=== PATIENT | male | born 1970 | race Two or more races ===

== ENCOUNTER 2020-05-26 09:07 | Emergency (ER) | payer MEDICAID ==
[~2020-05-26] VITALS: Ht 170.2 cm; Wt 90.7 kg
--- NOTE | 2020-05-26 09:15 | NUR ---
, from [facility]. Patient awake, alert and oriented. No distress noted. Needs attended. Kept comfortable.
[2020-05-26 10:00] LABS: BASOPHILS # (AUTO) 0.1 /CMM (0.0-0.2); BASOPHILS % (AUTO) 0.9 % (0.0-2.0); EOSINOPHILS % (AUTO) 0.2 % (0.0-6.0); HEMATOCRIT 43 % (39-51); HEMOGLOBIN 14.5 g/dL (13.5-17.5); LYMPHOCYTES # (AUTO) 1.1 /CMM (0.8-4.8); LYMPHOCYTES % (AUTO) 15.3 % (20.0-44.0); MEAN CORPUSCULAR HGB CONC 34 g/dl (31.0-36.0); MEAN CORPUSCULAR VOLUME 94 fL (80-96); MONOCYTES # (AUTO) 0.5 /CMM (0.1-1.30); MONOCYTES % (AUTO) 7.3 % (2.0-12.0); NEUTROPHILS # (AUTO) 5.3 /CMM (1.8-8.9); NEUTROPHILS % (AUTO) 76.3 % (43.0-81.0); PLATELET COUNT (AUTO) 233 /CMM (150-450); RED BLOOD CELL COUNT(AUTO) 4.51 MIL/uL (4.5-6.0); WHITE BLOOD COUNT (AUTO) 6.9 K/uL (4.3-11.0)
[2020-05-26 10:18] LABS: ALBUMIN 3.4 g/dL (3.4-5.0); BILIRUBIN,DIRECT 0.2 mg/dL (0.0-0.2); BILIRUBIN,TOTAL 0.6 mg/dL (0.2-1.0); CALCIUM, SERUM 7.7 mg/dL (8.5-10.1); CREATININE 0.7 mg/dL (0.6-1.3); POTASSIUM 3.4 mmol/L (3.5-5.1); TOTAL PROTEIN, SERUM 7.6 g/dL (6.4-8.2)
--- NOTE | 2020-05-26 14:38 | NUR ---
AMBULATORY WITH STEADY GAIT. AAOX4, VERBALLY RESPONSIVE. PROVIDED W/ FRESH CLOTHING. DISCHARGE HOME IN STABLE CONDITION.
[2020-05-26 15:57] VITALS: BP 122/84
== END 2020-05-26 14:38 | disposition home or self-care (01) ==
LOC: ER 09:07
DX: F10.129 Alcohol abuse with intoxication, unspecified (principal); Y90.8 Blood alcohol level of 240 mg/100 ml or more
CPT/HCPCS: 36415; 80048-TC; 80076-TC; 85025-TC; G0480

== ENCOUNTER 2020-05-28 13:47 | Emergency (ER) | payer MEDICAID ==
--- NOTE | 2020-05-28 14:05 | NUR ---
PT REFUSED TO BE SEEN. ELOPED PRIOR TO TRIAGE UINDER THE CARE OF MEDICAL ENGINEER.
[2020-05-29] MEDS ORDERED: OLAN5TAB3 PO (08:33)
[2020-05-29] MEDS ORDERED: LEVE500T9 PO (08:33)
[2020-05-29] MEDS ORDERED: FLUO40CA8 PO (08:33)
[2020-05-29] MEDS ORDERED: DOLU25TA PO (08:33)
[2020-05-29] MEDS ORDERED: DARU1TAB3 PO (09:12)
== END 2020-05-28 14:05 | disposition left against medical advice (07) ==
LOC: ER 13:49
DX: Z53.21 Procedure and treatment not carried out due to patient leaving prior to being seen by health care provider (principal); F20.9 Schizophrenia, unspecified; F32.9 Major depressive disorder, single episode, unspecified

== ENCOUNTER 2020-05-28 17:59 | Inpatient (IN) | payer MEDICAID, OTHER ==
[~2020-05-28] VITALS: Ht 170.2 cm; Wt 83.5 kg
[2020-05-28] MEDS ORDERED: LEVETIRACETAM (500MG) 1,000 MG in IV NS 0.9% 100 ML IV SCH (19:30)
--- NOTE | 2020-05-28 19:36 | NUR ---
BLOOD DRAWN BY MEAT HANGER, COVID SWAB DONE AND PT IS ON HIS WAY TO CT ON A RNEY
--- NOTE | 2020-05-28 19:37 | NUR ---
bg from a sober living to er bed 7. aaox4. not in resp distress, breathing even and unlabored. brought in for unwitnessed seizure. pt was already here earlier but left. 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 he report taking kepra but have taken any for a week. pt is noted with facial abrasion and scabs, according to pt he fell yesterday because of the seizure. calista was at th bedside for eval.
[2020-05-28 19:39] LABS: BASOPHILS % (AUTO) 0.5 % (0.0-2.0); HEMATOCRIT 43 % (39-51); HEMOGLOBIN 14.7 g/dL (13.5-17.5); LYMPHOCYTES # (AUTO) 1.1 /CMM (0.8-4.8); LYMPHOCYTES % (AUTO) 15.4 % (20.0-44.0); MEAN CORPUSCULAR HGB CONC 34 g/dl (31.0-36.0); MEAN CORPUSCULAR VOLUME 95 fL (80-96); MONOCYTES # (AUTO) 0.6 /CMM (0.1-1.30); NEUTROPHILS # (AUTO) 5.6 /CMM (1.8-8.9); NEUTROPHILS % (AUTO) 76.1 % (43.0-81.0); PLATELET COUNT (AUTO) 194 /CMM (150-450); RED BLOOD CELL COUNT(AUTO) 4.55 MIL/uL (4.5-6.0); WHITE BLOOD COUNT (AUTO) 7.4 K/uL (4.3-11.0)
[2020-05-28 19:48] LABS: CALCIUM, SERUM 8.2 mg/dL (8.5-10.1); CARBON DIOXIDE 22 mmol/L (21-32); CHLORIDE 102 mmol/L (98-107); GLUCOSE 96 mg/dL (74-106); POTASSIUM 3.5 mmol/L (3.5-5.1); SODIUM SERUM 140 mmol/L (136-145); UREA NITROGEN, BLOOD 8 mg/dL (7-18)
[2020-05-28 19:54] LABS: ALANINE AMINOTRANSFERASE 65 U/L (12-78); ALBUMIN 3.6 g/dL (3.4-5.0); ALKALINE PHOSPHATASE 117 U/L (46-116); ASPARTATE AMINOTRANSFERASE 163 U/L (15-37); BILIRUBIN,DIRECT 0.2 mg/dL (0.0-0.2); BILIRUBIN,TOTAL 0.6 mg/dL (0.2-1.0)
--- NOTE | 2020-05-28 20:00 | NUR ---
LACTIC 2.6, AWARE
[2020-05-28 20:01] LABS: MAGNESIUM 2.1 mg/dL (1.8-2.4)
[2020-05-28] MEDS ORDERED: VANCOMYCIN 1 GM in IV D5W 250 ML IV ONE ×2 (20:30→21:00)
[2020-05-28] MEDS ORDERED: CEFEPIME 1 GM in IV D5W 50 ML IV ONE ×2 (20:30→21:00)
--- NOTE | 2020-05-28 20:44 | NUR ---
pt unable to provide urine despite asking several times. made aware. ok to get urine once pt have the urge
[2020-05-28] MEDS ORDERED: IV NS 0.9% 1,000 ML BAG IV ONE (21:00)
--- NOTE | 2020-05-28 21:06 | NUR ---
report given to ed zelaya for mireille
--- NOTE | 2020-05-28 21:10 | NUR ---
UNABLE TO EDMUND VANCOMYCIN 1GM VIA IV ON [employer]. VANCOMYCIN GIVEN 2109 ON LFA 18G, ENDTIME 2209
--- NOTE | 2020-05-28 21:16 | NUR ---
MD MADE AWARE THAT HE PLACED ANOTHER ORDER FOR MAXIPINE AND VANCOMYCIN. ORRIGINAL ORDER WAS CANCELLED AND REPLACED WITH THE SAME ORDER. WHEN MD MADE AWARE, ORDERS GOT CANCELLED AGAIN. MAXIPINE WAS GIVEN ORIGINNALY ORDERED WELL THE VANCOMYCIN.
[2020-05-28 21:30] VITALS: BP 116/73
--- NOTE | 2020-05-28 21:34 | NUR ---
PT TRANSPORTED TO UNIT ON GURNEY WITH EMT AND RN AT BEDSIDE W/ ACLS PROTOCOL. NAD NOTED DURIN TRANSPORT.
--- NOTE | 2020-05-28 21:35 | NUR ---
tele admission note Admitted a 49 yr old male with admitting dx of seizures. Pt DNR/DNI with nkda. Dr. Jama aware. waiting to sign advanced directives. Patient alert oriented x4. Breathing even and unlabored with no sob or acute distress noted. Denies any pain or discomfort. Body assessment completed and belongings inventory done. All needs rendered. All due meds given with no ase noted. Call light within reach. Srx2 up. Will continue to monitor.
[2020-05-28] MEDS ORDERED: MAGNESIUM HYDROXIDE 30 ML UDC PO PRN (22:00)
[2020-05-28] MEDS ORDERED: ACETAMINOPHEN 325 MG TABLET PO PRN (22:00)
[2020-05-28] MEDS ORDERED: LEVETIRACETAM (500MG) 500 MG in IV NS 0.9% 100 ML IV SCH (22:00)
[2020-05-28] MEDS ORDERED: Z GUARD REMEDY 2 OZ OINT TP PRN (22:00)
[2020-05-28] MEDS ORDERED: MAG HYDROX/AL HYDROX/SIMETH 30 ML UDC PO PRN (22:00)
[2020-05-29] VITALS: BP 143/65
[2020-05-29] MEDS ORDERED: LEVETIRACETAM (500MG) 500 MG/5 ML VIAL IV ONE (00:21)
[2020-05-29] MEDS: ONDANSETRON HCL/PF 4 MG/2 ML VIAL IVP PRN (00:28)
[2020-05-29] MEDS: ZOLPIDEM TARTRATE 5 MG TABLET PO PRN (01:31)
[2020-05-29] MEDS: IV D5/0.45 NACL 1,000 ML IV PRN ×2 (02:33→15:07)
[2020-05-29 04:00] VITALS: BP 133/73
[2020-05-29] MEDS ORDERED: CEFEPIME 2 GM in IV D5W 100 ML IV SCH (05:00)
[2020-05-29] MEDS ORDERED: CEFEPIME 1 GM VIAL ONE (05:16)
[2020-05-29 06:24] LABS: BASOPHILS % (AUTO) 0.5 % (0.0-2.0); EOSINOPHILS % (AUTO) 0.5 % (0.0-6.0); HEMATOCRIT 40 % (39-51); HEMOGLOBIN 13.8 g/dL (13.5-17.5); LYMPHOCYTES # (AUTO) 0.8 /CMM (0.8-4.8); LYMPHOCYTES % (AUTO) 14.2 % (20.0-44.0); MEAN CORPUSCULAR HGB CONC 35 g/dl (31.0-36.0); MEAN CORPUSCULAR VOLUME 93 fL (80-96); MONOCYTES # (AUTO) 0.5 /CMM (0.1-1.30); MONOCYTES % (AUTO) 9.5 % (2.0-12.0); NEUTROPHILS % (AUTO) 75.3 % (43.0-81.0); PLATELET COUNT (AUTO) 160 /CMM (150-450); RED BLOOD CELL COUNT(AUTO) 4.26 MIL/uL (4.5-6.0); WHITE BLOOD COUNT (AUTO) 5.3 K/uL (4.3-11.0)
[2020-05-29 07:00] LABS: CALCIUM, SERUM 7.8 mg/dL (8.5-10.1); CREATININE 0.8 mg/dL (0.6-1.3); MAGNESIUM 1.9 mg/dL (1.8-2.4); POTASSIUM 3.4 mmol/L (3.5-5.1)
--- NOTE | 2020-05-29 07:07 | NUR ---
telephone plant power operator note pt in bed. awake a/o x2. Breathing even and unlabored with no sob or acute distress noted. Denies any pain or discomfort. Left and AC #22 patent and intact. IV fluids infusing well. All needs rendered. Kept clean and dry. Call light within reach. Repositioned q2h. Will endorse to am nurse for continuity of care.
--- NOTE | 2020-05-29 07:30 | NUR ---
CONSUMER ADVOCATE OPENING NOTES Patient alert oriented x4. Breathing even and unlabored with no sob or acute distress noted. Denies any pain or discomfort at this time. Body assessment completed and belongings inventory done. Bed kept at lowest position for safety. Call light within reach. Srx2 up. Will continue to monitor.
[2020-05-29 08:00] VITALS: BP 146/58
[2020-05-29] MEDS ORDERED: FLUO40CA8 PO (08:33)
[2020-05-29] MEDS ORDERED: DOLU25TA PO (08:33)
[2020-05-29] MEDS ORDERED: LEVE500T9 PO (08:33)
[2020-05-29] MEDS ORDERED: OLAN5TAB3 PO (08:33)
[2020-05-29] MEDS ORDERED: PANTOPRAZOLE 40 MG VIAL IV SCH ×2 (09:00)
[2020-05-29] MEDS ORDERED: Thiamine 100 MG in IV D5W 50 ML IV SCH (09:00)
[2020-05-29] MEDS ORDERED: DARU1TAB3 PO (09:12)
[2020-05-29] MEDS: VANCOMYCIN 1 GM in IV D5W 250 ML IV SCH ×2 (09:47→16:51)
[2020-05-29] MEDS: PANTOPRAZOLE 40 MG TABLET.DR PO SCH (09:47)
[2020-05-29] MEDS: LORAZEPAM INJ 2 MG/ML VIAL IV PRN ×2 (09:52→17:19)
[2020-05-29] MEDS: HYDROCODONE/APAP 5/325MG TABLET PO PRN ×3 (09:54→20:49)
[2020-05-29] MEDS ORDERED: POTASSIUM CHLORIDE 20 MEQ TAB.PRT.SR PO ONE (10:30)
[2020-05-29 12:00] VITALS: BP 148/84
[2020-05-29 16:00] VITALS: BP 123/64
[2020-05-29] MEDS: CEFEPIME 2 GM in IV D5W 100 ML IV SCH (17:11)
--- NOTE | 2020-05-29 18:30 | NUR ---
RN CLOSING NOTES pt in bed. awake a/o x2. Breathing even and unlabored with no sob or acute distress noted. Denies any pain or discomfort. Left and AC #22 patent and intact. IV fluids infusing well. All needs rendered. Kept clean and dry. Call light within reach. Repositioned q2h. Will endorse to am nurse for continuity of care
[2020-05-29 20:00] VITALS: BP 142/91
[2020-05-29] MEDS ORDERED: LEVETIRACETAM (500MG) 500 MG in IV NS 0.9% 100 ML IV SCH (20:00)
[2020-05-29] MEDS: LEVETIRACETAM (250 MG) 250 MG TABLET PO SCH (20:49)
[2020-05-30] MEDS: IV D5/0.45 NACL 1,000 ML IV PRN (01:08)
[2020-05-30] MEDS: VANCOMYCIN 1 GM in IV D5W 250 ML IV SCH (01:15)
--- NOTE | 2020-05-30 02:29 | NUR ---
MS-1/ZO VILLAFANA RN RECEIVED CALL FROM LAB REGARDING NEGATIVE COVID PCR RESULT.
[2020-05-30] MEDS: LORAZEPAM INJ 2 MG/ML VIAL IV PRN ×3 (02:50→17:31)
[2020-05-30] MEDS: HYDROCODONE/APAP 5/325MG TABLET PO PRN ×2 (02:51→19:49)
[2020-05-30 04:00] VITALS: BP 125/85
[2020-05-30] MEDS: CEFEPIME 2 GM in IV D5W 100 ML IV SCH (05:56)
--- NOTE | 2020-05-30 08:02 | NUR ---
PT RECEIVED IN BED AOX4. PT ON RA, NO RESPIRATORY DISTRESS OR SOB. NO TREMORS OR SEIZURES. PT HAS RFA #20 RUNNING D5 1/2 NS AT 75 ML/HR, NO SO SIGNS OF INFECTION OR INFILTRATION. PT IS REPORTED TO BE AMBULATORY, WITH FACIAL ABRASIONS. PT REGULAR DIET. BED IN LOCKED LOWEST POSITION, CALL [facility] WITHIN REACH, ALL SAFETY MEASURES IN PLACE. WILL CONTINUE TO MONITOR CLOSELY
[2020-05-30 08:57] LABS: BASOPHILS % (AUTO) 0.5 % (0.0-2.0); EOSINOPHILS % (AUTO) 1.9 % (0.0-6.0); HEMATOCRIT 45 % (39-51); HEMOGLOBIN 15.1 g/dL (13.5-17.5); LYMPHOCYTES # (AUTO) 0.5 /CMM (0.8-4.8); LYMPHOCYTES % (AUTO) 10.6 % (20.0-44.0); MEAN CORPUSCULAR HGB CONC 34 g/dl (31.0-36.0); MEAN CORPUSCULAR VOLUME 96 fL (80-96); MONOCYTES # (AUTO) 0.3 /CMM (0.1-1.30); MONOCYTES % (AUTO) 6.1 % (2.0-12.0); NEUTROPHILS # (AUTO) 4.1 /CMM (1.8-8.9); NEUTROPHILS % (AUTO) 80.9 % (43.0-81.0); PLATELET COUNT (AUTO) 136 /CMM (150-450); RED BLOOD CELL COUNT(AUTO) 4.64 MIL/uL (4.5-6.0)
[2020-05-30 08:58] LABS: CALCIUM, SERUM 8.3 mg/dL (8.5-10.1); CREATININE 0.8 mg/dL (0.6-1.3); POTASSIUM 3.7 mmol/L (3.5-5.1)
[2020-05-30] MEDS: THIAMINE HCL 100 MG TABLET PO SCH (09:15)
[2020-05-30] MEDS: PANTOPRAZOLE 40 MG TABLET.DR PO SCH (09:15)
[2020-05-30] MEDS: ONDANSETRON HCL/PF 4 MG/2 ML VIAL IVP PRN ×2 (09:15→17:31)
[2020-05-30] MEDS: LEVETIRACETAM (250 MG) 250 MG TABLET PO SCH ×2 (09:15→21:01)
[2020-05-30] MEDS: FLUOXETINE HCL 20 MG/5 ML UDC PO SCH (13:23)
[2020-05-30] MEDS ORDERED: HOME MED MISCELLANEOUS XX SCH ×2 (13:30)
[2020-05-30] MEDS: OLANZAPINE 5 MG TABLET PO SCH ×2 (14:27→21:02)
[2020-05-30 16:00] VITALS: BP 131/90
--- NOTE | 2020-05-30 19:30 | NUR ---
RECEIVED PT ON BED AWAKE A/O X4 PT IS A LITTLE AGITATED ABOUT HIS MEDICATION EXPLAINED THAT IT IS NOT DUE YET, AND WILL BE GIVE TO HIM ONCE IT IS TIME, ON ROOM AIR SPO2 97% ACHING PAIN ON LEFT LEG COMPLAINT WITH THE RATE OF 7 PRN MEDICATION FOR PAIN TO BE GIVEN, SAFETY MEASURE MAINTAIN BED ON LOWEST POSITION AND LOCKED SIDE RAILS UP X2 CALL LIGHT WITHIN REACH WILL CONT TO MONITOR Addendum: 05/30/20 at 2023 by EDMUND SAM RN PT IS CURRENTLY NPO, BECAUSE OF THE CONFUSION, IS AWARE AD
--- NOTE | 2020-05-30 19:51 | NUR ---
PT IN BED, AOX4, ON RA O2 SATURATION 97%. PT HAD 1 BM AND VOIDED 1500 ML THIS SHIFT. PT AMBULATORY TO BATHROOM WITH STANDBY ASSIST. PT RFA #20 IV SL. PT WISHES TO RECEIVE ZOFRAN AND ATIVAN, MEDS NOT DUE. EDUCATION GIVEN TO PATIENT REGARDING SAFE USE OF MEDICATION. PT AT TIMES WISHED TO LEAVE AMA, ABLE TO REDIRECT AND WAIT FOR PLANNED DC TOMORROW. PATIENT ATE APPROXIMATELY 75% OF MEALS TODAY. BED IN LOCKED LOWEST POSITION, CALL LIGHT WITHIN REACH, ALL SAFETY MEASURES IN PLACE. REPORT GIVEN TO EDMUND RYAN FOR VANESSA
[2020-05-30 20:00] VITALS: BP 140/95
[2020-05-30] MEDS: ZOLPIDEM TARTRATE 5 MG TABLET PO PRN (21:02)
[2020-05-31] VITALS: BP 134/86
--- NOTE | 2020-05-31 00:10 | NUR ---
PT REPORTED ITCHINESS, INFORMED DR. PENNINGTON AND MADE AN ORDER FOR BENADRYL 25MG PO Q6H PRN NOTED AND CARRIED OUT
[2020-05-31] MEDS ORDERED: diphenhydrAMINE HCL ELIX 25 MG/10 ML UDC PO PRN (00:30)
--- NOTE | 2020-05-31 00:30 | NUR ---
GIVE REPORT TO MR. LEDY RYAN FOR VANESSA
--- NOTE | 2020-05-31 00:45 | NUR ---
MS RN NOTE PT IN BED ASLEEP, AROUSABLE. NO DISTRESS OR DISCOMFORT NOTED. DENIES PAIN. RFA SL #20G INTACT AND PATENT. SIDE RAILS UP X 2 AND CALL LIGHT WITHIN REACH. ALL NEEDS ATTENDED. CONTINUE TO MONITOR HIM.
[2020-05-31 04:00] VITALS: BP 136/95
--- NOTE | 2020-05-31 06:30 | NUR ---
MS RN NOTE PT IN BED AWAKE. NO DISTRES NOTED. ALL NEEDS ATTENDED. ENDORSE TO DAY SHIFT NURSE FOR CONTINUE TO CARE.
[2020-05-31 06:52] LABS: CALCIUM, SERUM 9.1 mg/dL (8.5-10.1); POTASSIUM 4.4 mmol/L (3.5-5.1)
[2020-05-31] MEDS: HYDROCODONE/APAP 5/325MG TABLET PO PRN (07:06)
[2020-05-31] MEDS: LORAZEPAM INJ 2 MG/ML VIAL IV PRN ×2 (07:22→14:41)
[2020-05-31 08:00] VITALS: BP 132/95
--- NOTE | 2020-05-31 08:00 | NUR ---
ns rn note patient in bed all needs attended wants to Ativan feel anxiety and headache Tylenol po given , on ra no sob noted bed in lowest and locked position , call light within reach will monitor
[2020-05-31] MEDS: LEVETIRACETAM (250 MG) 250 MG TABLET PO SCH (08:14)
[2020-05-31] MEDS: THIAMINE HCL 100 MG TABLET PO SCH (08:14)
[2020-05-31] MEDS: PANTOPRAZOLE 40 MG TABLET.DR PO SCH (08:14)
[2020-05-31] MEDS: FLUOXETINE HCL 20 MG/5 ML UDC PO SCH (08:16)
--- NOTE | 2020-05-31 12:00 | NUR ---
MS RN NOTE RESTING COMFORTABLY, NOT IN DISTRESS
--- NOTE | 2020-05-31 14:41 | NUR ---
rn telephonic note feels anxiety Ativan ivp given as ordered, saturation 98%
--- NOTE | 2020-05-31 14:41 | NUR ---
MOISTURE CONDITIONER OPERATOR NOTE WAISTED ATIVAN ORDERED WITH SOONI CHARGE NURSE
--- NOTE | 2020-05-31 15:00 | NUR ---
television engineering teacher note resting comfortably, not in distress
--- NOTE | 2020-05-31 16:16 | NUR ---
NUCLEAR PLANT CONSTRUCTION WORKER NOTE WANTS TO AMA DESPITE EXPLANATION, EMPLANED RISK OF LIVING HOSPITAL STILL WANTS TO GO ALSO REFUSED TO SIGNED BELONGING STATED I AM IN HURRY BUT SIGNED FORM AMA , HL REMOVED, NO BLEEDING NOTED, DR BEBO DUMSA NOTIFIED
--- NOTE | 2020-05-31 16:52 | NUR ---
ms rn note left hospital with stable condition, hl removed dry dressing applied,no active bleeding noted
== END 2020-05-31 17:00 | disposition left against medical advice (07) | DRG 53 ==
LOC: ER 18:05 → TELE1 20:44 → MEDSG1 05-29 09:51
PROVIDERS: ADMIT Student in an Organized Health Care Education/Training Program; ATTEND Nurse Practitioner Acute Care
DX: G40.901 Epilepsy, unspecified, not intractable, with status epilepticus (principal); F32.9 Major depressive disorder, single episode, unspecified; F20.9 Schizophrenia, unspecified; Z91.19 Patient's noncompliance with other medical treatment and regimen; E87.2 Acidosis; F10.129 Alcohol abuse with intoxication, unspecified; Y90.8 Blood alcohol level of 240 mg/100 ml or more; R40.2362 Coma scale, best motor response, obeys commands, at arrival to emergency department; R40.2142 Coma scale, eyes open, spontaneous, at arrival to emergency department; R40.2252 Coma scale, best verbal response, oriented, at arrival to emergency department
CPT/HCPCS: 36415; 70450-TC; 71045-TC; 80048-TC; 80061-TC; 80076-TC; 80202-TC; 83605-TC; 83735-TC; 84100-TC; 84484-TC; 85025-TC; 85730-TC; 87040-TC; 87081-TC; 87086-TC; C9803; G0378; G0480; J0692; J1953; J2060; J2405; J3370; J3411; J3490; J7030; J7042; J7060; Q0163; U0003

== ENCOUNTER 2020-06-01 14:02 | Emergency (ER) | payer MEDICAID, OTHER ==
[~2020-06-01] VITALS: Ht 170.2 cm; Wt 90.7 kg
[~2020-06-01 14:02] MED LIST: DARU1TAB3 PO; DOLU25TA PO; FLUO40CA8 PO; LEVE500T9 PO; OLAN5TAB3 PO
--- NOTE | 2020-06-01 14:21 | NUR ---
Patient eloped from facility. ER MD notified.
[2020-06-01 14:22] VITALS: BP 151/84
== END 2020-06-01 16:44 | disposition left against medical advice (07) ==
LOC: ER 14:03
DX: R07.89 Other chest pain (principal); R06.02 Shortness of breath; Z79.899 Other long term (current) drug therapy

== ENCOUNTER 2020-11-10 19:03 | Inpatient (IN) | payer SELFPAY ==
[~2020-11-10] VITALS: Ht 167.6 cm; Wt 73.9 kg
[2020-11-10 19:43] LABS: BASOPHILS % (AUTO) 0.5 % (0.0-2.0); EOSINOPHILS % (AUTO) 1.2 % (0.0-6.0); HEMATOCRIT 44 % (39-51); HEMOGLOBIN 14.8 g/dL (13.5-17.5); LYMPHOCYTES # (AUTO) 1.8 /CMM (0.8-4.8); LYMPHOCYTES % (AUTO) 29.2 % (20.0-44.0); MEAN CORPUSCULAR HGB CONC 34 g/dl (31.0-36.0); MEAN CORPUSCULAR VOLUME 94 fL (80-96); MONOCYTES # (AUTO) 0.5 /CMM (0.1-1.30); MONOCYTES % (AUTO) 8.2 % (2.0-12.0); NEUTROPHILS # (AUTO) 3.8 /CMM (1.8-8.9); NEUTROPHILS % (AUTO) 60.9 % (43.0-81.0); PLATELET COUNT (AUTO) 127 /CMM (150-450); WHITE BLOOD COUNT (AUTO) 6.3 K/uL (4.3-11.0)
[2020-11-10 19:53] LABS: CALCIUM, SERUM 8.4 mg/dL (8.5-10.1); CARBON DIOXIDE 21 mmol/L (21-32); CHLORIDE 105 mmol/L (98-107); CREATININE 0.9 mg/dL (0.6-1.3); GLUCOSE 93 mg/dL (74-106); POTASSIUM 3.4 mmol/L (3.5-5.1); SODIUM SERUM 140 mmol/L (136-145); UREA NITROGEN, BLOOD 7 mg/dL (7-18)
[2020-11-10 20:00] LABS: ALANINE AMINOTRANSFERASE 320 U/L (12-78); ALBUMIN 3.4 g/dL (3.4-5.0); ALCOHOL, BLOOD 418 mg/dL (0-0); ALKALINE PHOSPHATASE 117 U/L (46-116); ASPARTATE AMINOTRANSFERASE 435 U/L (15-37); BILIRUBIN,DIRECT 0.2 mg/dL (0.0-0.2); BILIRUBIN,TOTAL 0.3 mg/dL (0.2-1.0); TOTAL PROTEIN, SERUM 7.8 g/dL (6.4-8.2)
[2020-11-10 20:01] LABS: ACETAMINOPHEN < 2 ug/ml (10-30)
--- NOTE | 2020-11-10 20:20 | NUR ---
ASSUMED CARE FOR THIS PT. PT C/O SI W/ A PLAN TO CUT WRIST AND HAD A HX OF SEIZIRE. PT DROWSY BUT EASILY AROUSABLE THRU MECAHNICAL STIMULI. RR EVEN AND ULABORED. PT CONNECTED TO THE RUBBER GOODS CUTTER FINISHER AND POX
[2020-11-10] MEDS ORDERED: LEVETIRACETAM (500MG) 500 MG in IV NS 0.9% 100 ML IV ONE (20:30)
--- NOTE | 2020-11-10 20:36 | NUR ---
COVID NEGATIVE PER LAB
[2020-11-10] MEDS ORDERED: LEVETIRACETAM (500MG) 500 MG/5 ML VIAL IV ONE (20:41)
--- NOTE | 2020-11-10 20:51 | NUR ---
PT TAKEN TO RADIOLOGY FOR CT
[2020-11-10] MEDS ORDERED: CEFTRIAXONE 1 G in IV D5W 50 ML IV ONE (21:30)
[2020-11-10 21:35] LABS: BILIRUBIN,URINE Negative (NEGATIVE); COLOR,URINE YELLOW (YELLOW); LEUKOCYTE ESTERASE ,URINE Negative (NEGATIVE); NITRITE, URINE Negative (NEGATIVE); PROTEIN,URINE Negative (NEGATIVE); UGLUCOSE Negative (NEGATIVE); UROBILINOGEN,URINE 0.2 EU/dL (0.2)
[2020-11-10] MEDS ORDERED: LORAZEPAM INJ 2 MG/ML VIAL IV ONE (23:00)
[2020-11-10] MEDS ORDERED: CEFTRIAXONE 1GM BAG (ER ONLY) 50 ML IV ONE (23:41)
[2020-11-10] MEDS ORDERED: LORAZEPAM INJ 2 MG/ML VIAL ONE (23:41)
--- NOTE | 2020-11-11 01:01 | NUR ---
REPORT GIVEN TO CONNOR TED
[2020-11-11] MEDS ORDERED: IV NS 0.9% 1,000 ML IV PRN (01:30)
[2020-11-11] MEDS ORDERED: ZOLPIDEM TARTRATE 5 MG TABLET PO PRN (01:30)
[2020-11-11] MEDS ORDERED: ACETAMINOPHEN 325 MG TABLET PO PRN (01:30)
[2020-11-11] MEDS ORDERED: POTASSIUM CHLORIDE 20 MEQ TAB.PRT.SR PO ONE (01:30)
[2020-11-11] MEDS ORDERED: ONDANSETRON HCL/PF 4 MG/2 ML VIAL IVP PRN (01:30)
[2020-11-11] MEDS ORDERED: LORAZEPAM INJ 2 MG/ML VIAL IV PRN (01:30)
[2020-11-11] MEDS ORDERED: MAGNESIUM HYDROXIDE 30 ML UDC PO PRN (01:30)
[2020-11-11 02:00] VITALS: BP 115/88
[2020-11-11 02:30] VITALS: BP 156/73
--- NOTE | 2020-11-11 03:00 | NUR ---
TELECOMMUNICATION EQUIPMENT REPAIRER NOTES: RECEIVED A 50 YR OLD MALE PATIENT FROM ER WITH DIAGNOSIS OF SEIZURE, HX OF SCHIZOPRENIA, NO KNOWN ALLERGY, A/O X2-3, PATIENT WAS VERBALLY RESPONSIVE BUT WITH EPISODE OF CONFUSION. AND ALTERED MENTAL STATUS, ON 1:1 SITTER AT BEDSIDE DUE TO VERBALIZATION OF SUICIDAL IDEATION, AMBULATORY WITH SUPERVISION, NO DIFFICULTY SWALLOWING, PATIENT ON TELE MONITORING WITH READING OF SINUS RTHYM , HR OF 90, SKIN ASSESSMENT DONE WITH NOTED SKIN THICKNESS AT THE LEFT FOOT,NO SKIN BREAKDOWN WAS OBSERVED, PATIENT WAS (+) WITH AMPETAMINE , ALCOHOL LEVEL AT 418, TO MONITOR FOR SEIZURE EPISODE AND THEN FOR PSYCH EVALUATION, IV ON LFA#20, ON IV HYDRATION OF .09 NSS @100 ML PER HR PRN, BED IN LOW POSITION, CALL LIGHTS REACH, KEPT CLEAN AND DRY, WILL CONTINE TO MONITOR.
[2020-11-11 04:00] VITALS: BP 125/80
[2020-11-11 06:07] VITALS: BP 125/80
[2020-11-11 06:48] LABS: BILIRUBIN,TOTAL 0.3 mg/dL (0.2-1.0); CALCIUM, SERUM 7.7 mg/dL (8.5-10.1); CREATININE 0.7 mg/dL (0.6-1.3); TOTAL PROTEIN, SERUM 7.1 g/dL (6.4-8.2)
--- NOTE | 2020-11-11 06:52 | NUR ---
MS RN CLOSING NOTE: PATIENT SLEEP IN BED COMFORTABLY, AROUSABLE TO STIMULI, BED IN LOW POSITION, CALL LIGHTS WITHIN REACH,NO COMPLAIN OF PAIN AND DISCOMFORT, PATIENT AMBULATE TO RESTROOM WITH ASSISTANCE, ON 2 GRAMS OF NA DIET, ICE CHIPS OFFERED, KEPT CLEAN AND DRY, ALL NEEDS MET, WILL CONTINUE TO MONITOR.
--- NOTE | 2020-11-11 07:31 | NUR ---
RN OPENING NOTE PATIENT AWAKE IN BED. A/O X3 AND SOUTH KOREAN SPEAKING. CURRENTLY NO COMPLAINT OF PAIN OR NAUSEA. CURRENTLY ON RA WITH NO SOB OR RESPIRATORY DISTRESS PRESENT. SEIZURE PRECAUTIONS. THOUGHTS OF SUICIDE PRESENT WITH SITTER AT BEDSIDE. CURRENTLY ON DIRECTOR E LEARNING. NO EDEMA PRESENT. SKIN IS INTACT. SELF AMBULATORY. HL PRESENT ON L FA 18G WITH IV FLUIDS RUNNING. SAFETY MEASURES IN PLACE. SIDE RAILS RAISED AND PADDED. BED LOWERED. CALL LIGHT WITHIN REACH. WILL CONTINUE TO MONITOR.
--- NOTE | 2020-11-11 08:06 | NUR ---
RN NOTE PATIENT TAKEN OFF OF 2L O2 NC. NO SOB OR RESPIRATORY DISTRESS PRESENT. O2 SAT 100% WILL CONTINUE TO MONITOR.
[2020-11-11] MEDS ORDERED: FOLIC ACID 1 MG TABLET PO SCH (09:00)
[2020-11-11] MEDS ORDERED: Medication Not On Formulary EA (Dolutegravir Sodium (Tivicay) 50 MG) PO SCH (09:00)
[2020-11-11] MEDS ORDERED: THIAMINE HCL 100 MG TABLET PO SCH (09:00)
[2020-11-11] MEDS ORDERED: [UNRECOGNIZED DRUG - OTHER] PO SCH (09:00)
[2020-11-11] MEDS ORDERED: LEVETIRACETAM (250 MG) 250 MG TABLET PO SCH (09:00)
--- NOTE | 2020-11-11 09:00 | NUR ---
RN NOTE PATIENT WANTING TO LEAVE HOSPITAL AMA. CRISIS DR NOTIFIED. NOTIFIED. WILL CONTINUE TO MONITOR.
--- NOTE | 2020-11-11 09:26 | NUR ---
RN NOTE PATIENT LEAVING HOSPITAL AMA. NOT FORM SIGNED. SUICIDE RISK ASSESSMENT DONE. CHARGE NURSE OKAYED PATIENT TO BE ABLE TO LEAVE. MD NOTIFIED. HL REMOVED. ID BAND REMOVED. PT REFUSED SKIN ASSESSMENT AND PATIENT EDUCATION FORMS.
== END 2020-11-11 09:25 | disposition left against medical advice (07) | DRG 917 ==
LOC: ER 19:05 → TELE 11-11 00:46
PROVIDERS: ADMIT Nurse Practitioner Acute Care
DX: T51.91XA Toxic effect of unspecified alcohol, accidental (unintentional), initial encounter (principal); G92 Toxic encephalopathy; G40.509 Epileptic seizures related to external causes, not intractable, without status epilepticus; R45.851 Suicidal ideations; G40.909 Epilepsy, unspecified, not intractable, without status epilepticus; E87.6 Hypokalemia; T51.0X1A Toxic effect of ethanol, accidental (unintentional), initial encounter; Z20.822 Contact with and (suspected) exposure to COVID-19; F20.9 Schizophrenia, unspecified; Z79.899 Other long term (current) drug therapy; T43.621A Poisoning by amphetamines, accidental (unintentional), initial encounter; F10.129 Alcohol abuse with intoxication, unspecified; F15.10 Other stimulant abuse, uncomplicated; Y92.9 Unspecified place or not applicable; R74.01 Elevation of levels of liver transaminase levels
CPT/HCPCS: 36415; 70450-TC; 72125-TC; 76705-TC; 80048-TC; 80053-TC; 80076-TC; 80177; 85025-TC; 87081-TC; C9803; G0378; G0480; J0696; J1953; J2060; J7030; J7060; L0172

== ENCOUNTER 2020-11-16 12:11 | Emergency (ER) | payer SELFPAY ==
--- NOTE | 2020-11-16 12:18 | NUR ---
CALLED IN ED WAITING ROOM. STATES NOT READY, USING HIS PHONE.
--- NOTE | 2020-11-16 12:52 | NUR ---
CALLED TO TRIAGE, NO ANSWER
== END 2020-11-16 12:54 | disposition left against medical advice (07) ==
LOC: ER 12:12
DX: Z53.21 Procedure and treatment not carried out due to patient leaving prior to being seen by health care provider (principal)

== ENCOUNTER 2021-02-01 17:26 | Inpatient (IN) | payer SELFPAY ==
[~2021-02-01] VITALS: Ht 170.2 cm; Wt 81.2 kg
--- NOTE | 2021-02-01 17:33 | NUR ---
DR PENNY AT BEDSIDE FOR EVAL.
--- NOTE | 2021-02-01 17:35 | NUR ---
PT BIBRA WITH PD. PT WENT TO PD STATION C/O DEPRESSION W/ SI W/ PLAN TO "TAKE PILLS" . PT ADMITS TO DRINKING TODAY. DENIES HI. PT IS COOPERATIVE TO STAFF. GOWNED AND PLACED ON MONITOR. CARLA CORRAL.
--- NOTE | 2021-02-01 17:47 | NUR ---
ROBOTICS TECHNOLOGIST AT BEDSIDE FOR BLOOD DRAW.
[2021-02-01 17:54] LABS: BASOPHILS % (AUTO) 0.2 % (0.0-2.0); EOSINOPHILS % (AUTO) 0.4 % (0.0-6.0); HEMATOCRIT 39 % (39-51); HEMOGLOBIN 13.8 g/dL (13.5-17.5); LYMPHOCYTES # (AUTO) 1.7 K/uL (0.8-4.8); LYMPHOCYTES % (AUTO) 13.5 % (20.0-44.0); MEAN CORPUSCULAR HGB CONC 36 g/dl (31.0-36.0); MEAN CORPUSCULAR VOLUME 89 fL (80-96); MONOCYTES # (AUTO) 1.3 K/uL (0.1-1.30); MONOCYTES % (AUTO) 10.4 % (2.0-12.0); NEUTROPHILS # (AUTO) 9.7 K/uL (1.8-8.9); NEUTROPHILS % (AUTO) 75.5 % (43.0-81.0); PLATELET COUNT (AUTO) 285 K/uL (150-450); RED BLOOD CELL COUNT(AUTO) 4.38 MIL/uL (4.5-6.0); WHITE BLOOD COUNT (AUTO) 12.8 K/uL (4.3-11.0)
[2021-02-01 18:05] LABS: ALBUMIN 3.7 g/dL (3.4-5.0); BILIRUBIN,DIRECT 0.3 mg/dL (0.0-0.2); BILIRUBIN,TOTAL 1.3 mg/dL (0.2-1.0); CALCIUM, SERUM 7.4 mg/dL (8.5-10.1); CREATININE 0.8 mg/dL (0.6-1.3); POTASSIUM 3.8 mmol/L (3.5-5.1); TOTAL PROTEIN, SERUM 8.4 g/dL (6.4-8.2)
--- NOTE | 2021-02-01 18:45 | NUR ---
URINE SPECIMEN COLLECTED SENT TO LAB.
[2021-02-01] MEDS ORDERED: IV NS 0.9% 1,000 ML BAG IV ONE ×2 (19:00→20:00)
[2021-02-01 19:09] LABS: BILIRUBIN,URINE Negative (NEGATIVE); COLOR,URINE YELLOW (YELLOW); LEUKOCYTE ESTERASE ,URINE Negative (NEGATIVE); NITRITE, URINE Negative (NEGATIVE); PH,URINE 6.5 (5.0-8.0); PROTEIN,URINE Negative (NEGATIVE); UGLUCOSE Negative (NEGATIVE)
--- NOTE | 2021-02-01 19:14 | NUR ---
REC'D REPORT FROM CONNOR KIM FOR REPORT
[2021-02-01 19:26] LABS: BACTERIA,URINE Few /HPF (None Seen); RBC,URINE 0-2 /HPF (0-2); SQUAMOUS EPITHELIAL CELL,UR Few /HPF (None Seen); WBC,URINE 0-2 /HPF (0-3)
--- NOTE | 2021-02-01 20:55 | NUR ---
CALLED LAB TO F/U ABOUT BLOOD DRAW
[2021-02-01 21:04] LABS: CALCIUM, SERUM 6.9 mg/dL (8.5-10.1); CREATININE 0.7 mg/dL (0.6-1.3); POTASSIUM 3.4 mmol/L (3.5-5.1)
--- NOTE | 2021-02-01 21:16 | NUR ---
VERBAL ORDER 4MG ZOFRAN IV
[2021-02-01] MEDS ORDERED: IV NS 0.9% 1,000 ML IV ONE (21:30)
[2021-02-01] MEDS ORDERED: POTASSIUM CHLORIDE 20 MEQ TAB.PRT.SR PO ONE ×2 (21:30→21:31)
[2021-02-01] MEDS ORDERED: ONDANSETRON HCL/PF 4 MG/2 ML VIAL ONE (21:31)
[2021-02-01] MEDS ORDERED: CHLORDIAZEPOXIDE HCL 25 MG CAPSULE ONE (21:56)
[2021-02-01] MEDS ORDERED: CHLORDIAZEPOXIDE HCL 25 MG CAPSULE PO ONE (22:00)
[2021-02-01] MEDS ORDERED: ONDANSETRON HCL/PF 4 MG/2 ML VIAL IV ONE (22:00)
[2021-02-01] MEDS ORDERED: ACETAMINOPHEN 325 MG TABLET PO PRN (23:00)
[2021-02-01] MEDS ORDERED: Z GUARD REMEDY 2 OZ OINT TP PRN (23:00)
[2021-02-01] MEDS ORDERED: IV NS 0.9% 1,000 ML IV PRN (23:00)
--- NOTE | 2021-02-01 23:00 | NUR ---
Pt attached to monitor breathing evenly and unlabored
[2021-02-02] MEDS ORDERED: ONDANSETRON HCL/PF 4 MG/2 ML VIAL ONE (01:45)
[2021-02-02] MEDS: ONDANSETRON HCL/PF 4 MG/2 ML VIAL IVP PRN ×2 (01:48→13:11)
[2021-02-02] MEDS ORDERED: LORAZEPAM INJ 2 MG/ML VIAL ONE ×2 (02:10→06:47)
--- NOTE | 2021-02-02 02:15 | NUR ---
pt placed on 2L O2 for comfort
[2021-02-02] MEDS: LORAZEPAM INJ 2 MG/ML VIAL IV PRN ×4 (02:20→23:51)
--- NOTE | 2021-02-02 02:21 | NUR ---
Patient is resting comfortably in bed with eyes closed. Easily aroused. VSS
--- NOTE | 2021-02-02 04:25 | NUR ---
pt resting comfortably, needs attended to
--- NOTE | 2021-02-02 05:40 | NUR ---
lab at bedside
[2021-02-02 05:58] LABS: BASOPHILS % (AUTO) 0.4 % (0.0-2.0); EOSINOPHILS % (AUTO) 1.4 % (0.0-6.0); HEMATOCRIT 34 % (39-51); HEMOGLOBIN 12.4 g/dL (13.5-17.5); LYMPHOCYTES # (AUTO) 1.2 K/uL (0.8-4.8); LYMPHOCYTES % (AUTO) 13.6 % (20.0-44.0); MEAN CORPUSCULAR HGB CONC 36 g/dl (31.0-36.0); MEAN CORPUSCULAR VOLUME 87 fL (80-96); MONOCYTES # (AUTO) 0.9 K/uL (0.1-1.30); MONOCYTES % (AUTO) 10.1 % (2.0-12.0); NEUTROPHILS # (AUTO) 6.5 K/uL (1.8-8.9); NEUTROPHILS % (AUTO) 74.5 % (43.0-81.0); PLATELET COUNT (AUTO) 199 K/uL (150-450); RED BLOOD CELL COUNT(AUTO) 3.92 MIL/uL (4.5-6.0); WHITE BLOOD COUNT (AUTO) 8.7 K/uL (4.3-11.0)
[2021-02-02 06:04] LABS: ALBUMIN 3.2 g/dL (3.4-5.0); BILIRUBIN,TOTAL 1.4 mg/dL (0.2-1.0); CALCIUM, SERUM 7.8 mg/dL (8.5-10.1); CREATININE 0.7 mg/dL (0.6-1.3); MAGNESIUM 1.9 mg/dL (1.8-2.4); PHOSPHORUS 1.3 mg/dL (2.5-4.9); POTASSIUM 3.8 mmol/L (3.5-5.1); TOTAL PROTEIN, SERUM 7.1 g/dL (6.4-8.2)
[2021-02-02 06:18] LABS: THYROID STIMULATING HORMONE 2.37 uIU/mL (0.358-3.74)
--- NOTE | 2021-02-02 07:05 | NUR ---
gave report to CONNOR Taveras for mireille
[2021-02-02] MEDS ORDERED: LEVETIRACETAM (250 MG) 250 MG TABLET PO ONE (07:56)
[2021-02-02] MEDS ORDERED: MULTIVIT W/MINERALS 1 TAB TABLET ONE (07:56)
[2021-02-02] MEDS ORDERED: FOLIC ACID 1 MG TABLET ONE (07:56)
[2021-02-02] MEDS ORDERED: PANTOPRAZOLE 40 MG TABLET.DR PO ONE (07:57)
[2021-02-02] MEDS ORDERED: THIAMINE HCL 100 MG TABLET ONE (07:57)
[2021-02-02] MEDS: PANTOPRAZOLE 40 MG TABLET.DR PO SCH (07:58)
[2021-02-02] MEDS: MULTIVITAMINS,THERAGRAN 1 UDTAB TABLET PO SCH (08:01)
[2021-02-02] MEDS: LEVETIRACETAM (250 MG) 250 MG TABLET PO SCH ×2 (08:01→16:22)
[2021-02-02] MEDS: FOLIC ACID 1 MG TABLET PO SCH (08:01)
[2021-02-02] MEDS: THIAMINE HCL 100 MG TABLET PO SCH (08:02)
[2021-02-02] MEDS: FLUOXETINE HCL 20 MG CAPSULE PO SCH (08:44)
--- NOTE | 2021-02-02 11:43 | NUR ---
GOING TO 325.2
--- NOTE | 2021-02-02 11:59 | NUR ---
REPORT GIVEN TO JONA RYAN. AWAITING TRANSFER TO FLOOR.
--- NOTE | 2021-02-02 12:31 | NUR ---
TELE/TARE MAN NOTES RECEIVED PATIENT FROM THE ER. PATIENT IS ALERT AND ORIENTEDX4, ABLE TO MAKE NEEDS KNOWN. STABLE ON ROOM AIR. AMBULATORY. CONTINENT AND PREFERRED TO USE URINAL. SKIN IS INTACT. IV ACCESS ON RIGHT FOREARM #20G IS INTACT AND PATENT ON SALINE LOCK. SAFETY PRECAUTIONS IN PLACED:BED LOCKED ON LOWEST POSITION, SIDE RAILS UPX2, CALL LIGHT AND TABLE WITHIN REACH. WILL CONTINUE TO MONITOR PATIENT.
[2021-02-02] MEDS ORDERED: K PHOS NEUTRAL 250 MG TABLET PO ONE (15:30)
[2021-02-02 16:00] VITALS: BP 130/82
--- NOTE | 2021-02-02 19:35 | NUR ---
TELE/RN CLOSING NOTES PATIENT IN BED, ALERT AND ORIENTEDX4, ABLE TO MAKE NEEDS KNOWN. STABLE ON ROOM AIR. AMBULATORY. CONTINENT AND PREFERRED TO USE URINAL. SKIN IS INTACT. IV ACCESS ON RIGHT FOREARM #20G IS INTACT AND PATENT ON SALINE LOCK. SAFETY PRECAUTIONS IN PLACED:BED LOCKED ON LOWEST POSITION, SIDE RAILS UPX2, CALL LIGHT AND TABLE WITHIN REACH. WILL ENDORSE TO THE NEXT SHIFT FOR VANESSA.
[2021-02-02 20:00] VITALS: BP 113/67
[2021-02-02] MEDS: OLANZAPINE 5 MG TABLET PO SCH (21:48)
[2021-02-03] VITALS: BP 125/78
[2021-02-03 04:00] VITALS: BP 122/66
--- NOTE | 2021-02-03 06:24 | NUR ---
REGULATORY ASSISTANT NOTES AWAKE & RESPONSIVE. NOT IN ANY DISTRESS. NO SOB NOTED. DENIES ANY PAIN OR DISCOMFORT AT THIS TIME. ON TELE SR @ 78 WITH IV-HL PATENT & INTACT. AM CARE DONE. MONITORED ACCORDINGLY. CALL LIGHT WITHIN REACH. BED IN LOWEST POSITION. SR UP X 3 WITH BED ALARM ON FOR SAFETY. WILL ENDORSE TO NEXT SHIFT.
[2021-02-03] MEDS: PANTOPRAZOLE 40 MG TABLET.DR PO SCH (07:54)
[2021-02-03 08:00] VITALS: BP 123/90
--- NOTE | 2021-02-03 08:15 | NUR ---
JUDGE OPENING NOTE-UNCHANGED. PATIENT IN BED, ALERT AND ORIENTEDX4, ABLE TO MAKE NEEDS KNOWN. STABLE ON ROOM AIR. TELE- SR @89, AMBULATORY. CONTINENT AND PREFERRED TO USE URINAL. SKIN IS INTACT. IV ACCESS ON RIGHT FOREARM #20G IS INTACT AND PATENT ON SALINE LOCK. SAFETY PRECAUTIONS IN PLACED:BED LOCKED IN LOWEST POSITION, SIDE RAILS UPX2, CALL LIGHT IN REACH. NEEDS ATTENDED,. MONITOR
[2021-02-03 09:31] LABS: BASOPHILS % (AUTO) 0.7 % (0.0-2.0); EOSINOPHILS % (AUTO) 7.6 % (0.0-6.0); HEMATOCRIT 38 % (39-51); HEMOGLOBIN 13.2 g/dL (13.5-17.5); LYMPHOCYTES # (AUTO) 1.7 K/uL (0.8-4.8); LYMPHOCYTES % (AUTO) 25.3 % (20.0-44.0); MEAN CORPUSCULAR HGB CONC 35 g/dl (31.0-36.0); MEAN CORPUSCULAR VOLUME 91 fL (80-96); MONOCYTES # (AUTO) 0.6 K/uL (0.1-1.30); NEUTROPHILS # (AUTO) 3.9 K/uL (1.8-8.9); NEUTROPHILS % (AUTO) 57.4 % (43.0-81.0); PLATELET COUNT (AUTO) 219 K/uL (150-450); RED BLOOD CELL COUNT(AUTO) 4.13 MIL/uL (4.5-6.0); WHITE BLOOD COUNT (AUTO) 6.7 K/uL (4.3-11.0)
[2021-02-03] MEDS: MULTIVITAMINS,THERAGRAN 1 UDTAB TABLET PO SCH (09:52)
[2021-02-03] MEDS: THIAMINE HCL 100 MG TABLET PO SCH (09:52)
[2021-02-03] MEDS: FOLIC ACID 1 MG TABLET PO SCH (09:52)
[2021-02-03] MEDS: LEVETIRACETAM (250 MG) 250 MG TABLET PO SCH ×2 (09:52→17:16)
[2021-02-03] MEDS: FLUOXETINE HCL 20 MG CAPSULE PO SCH (09:56)
[2021-02-03 10:14] LABS: PHOSPHORUS 2.5 mg/dL (2.5-4.9); POTASSIUM 3.1 mmol/L (3.5-5.1)
[2021-02-03 16:00] VITALS: BP 125/82
--- NOTE | 2021-02-03 16:48 | NUR ---
RN NOTE- PT K- 3.1. HAT CONE INSPECTOR BETINA ORDERED 40- MEQ KCL X ONE DOSE NOW. DC IV FLUIDS PT IS DRINKING FLUIDS .
[2021-02-03] MEDS ORDERED: POTASSIUM CHLORIDE 20 MEQ TAB.PRT.SR PO STA (16:49)
--- NOTE | 2021-02-03 18:45 | NUR ---
RN CLOSING NOTE- PATIENT IN BED, ALERT AND ORIENTEDX4, ABLE TO MAKE NEEDS KNOWN. STABLE ON ROOM AIR. TELE- SR @88, AMBULATORY. CONTINENT AND PREFERRED TO USE URINAL. SKIN IS MOSTLY INTACT- THOUGH SMALL RASH PRURITIC AND ERYTHEMATOUS AT BILATERAL ANKLES AND SHINS. IV ACCESS ON RIGHT FOREARM #20G IS INTACT AND PATENT ON SALINE LOCK. SAFETY PRECAUTIONS IN PLACED:BED LOCKED IN LOWEST POSITION, SIDE RAILS UPX2, CALL LIGHT IN REACH. NEEDS ATTENDED,. MONITOR
--- NOTE | 2021-02-03 19:34 | NUR ---
TEST PULLER OPENING NOTES: RECEIVED PATIENT AWAKE IN BED, BED IN LOW POSITION, CALL LIGHTS WITHIN REACH, NO COMPLAIN OF PAIN AND DISCOMFORT AT THIS TIME, PATIENT IS A/OX4 ON BR/ URINAL. IV LINE ON LFA #20, ON TELE MONITORING WITH READING OF SR 87,PATIENT KEPT CLEAN AND DRY, ALL NEEDS MET, WILL CONTINUE TO MONITOR
[2021-02-03 20:00] VITALS: BP 116/79
[2021-02-03] MEDS: OLANZAPINE 5 MG TABLET PO SCH (22:00)
[2021-02-04] VITALS: BP 110/87
[2021-02-04 04:00] VITALS: BP 97/67
--- NOTE | 2021-02-04 06:41 | NUR ---
MACHINE TECHNICIAN CLOSING NOTES: PATIENT SLEEP IN BED COMFORTABLY, BED IN LOW POSITION, CALL LIGHTS WITHIN REACH, NO COMPLAIN OF PAIN AND DISCOMFORT AT THIS TIME, PATIENT IS BED REST, USING URINAL, ON TELE MONITORING AT SR -93 PATIENT KEPT CLEAN AND DRY, ALL NEEDS MET, ENDORSE TO INCOMING SHIFT.
--- NOTE | 2021-02-04 07:30 | NUR ---
PT RECEIVED RESTING COMFORTABLY IN BED. NO S/S OR C/O PAIN OR DISTRESS NOTED. SIDE RAILS UP X2, CALL LIGHT LEFT WITHIN REACH. WILL CONTINUE PLAN OF CARE.
[2021-02-04] MEDS: THIAMINE HCL 100 MG TABLET PO SCH (08:34)
[2021-02-04] MEDS: LEVETIRACETAM (250 MG) 250 MG TABLET PO SCH (08:34)
[2021-02-04] MEDS: MULTIVITAMINS,THERAGRAN 1 UDTAB TABLET PO SCH (08:34)
[2021-02-04] MEDS: PANTOPRAZOLE 40 MG TABLET.DR PO SCH (08:34)
[2021-02-04] MEDS: FOLIC ACID 1 MG TABLET PO SCH (08:34)
[2021-02-04] MEDS: FLUOXETINE HCL 20 MG CAPSULE PO SCH (08:34)
[2021-02-04 09:12] VITALS: BP 158/97
--- NOTE | 2021-02-04 09:40 | NUR ---
WOUND CARE CONSULT: PT PRESENTS WITH FOOT WOUNDS, PRESENT ON ADMISSION. NO DRAINAGE NOTED. DPM CONSULT CALLED TO DR HAMPAPUR. COVARRUBIAS IN AGREEMENT WITH PLAN OF CARE.
--- NOTE | 2021-02-04 11:20 | NUR ---
"Dozer Operator consult: access services librarian consult requested for suicidal ideation, substance use and homelessness. Patient is a 50-year-old, male. SW met with patient at his bedside in the med-surg unit. Patient was alert and oriented x4. Patient presented anxious. Patient was able to maintain appropriate eye contact. Patient appeared appropriately dressed. Per chart, patient presented to the hospital with [employer] as he presented to the PD on 02/02/21 with complaints of feeling depressed and suicidal with a plan to take pills. Patient admitted to drinking alcohol. Patient stated that he is currently homeless. Patient reported that he was previously living at a sober living facility but left as he was feeling uncomfortable that residents were touching his phone and belongings. Patient stated that he has access to family support and provided SW with contact information for his mother, Leena, . Patient stated that his current source of income is [employer]. SW assessed patients history of substance use. Patient reported history of alcohol use and stated that his last drink was from 3-4 days ago. Patient reported occasional alcohol use. Patient reported history of mental illness which includes, Schizoaffective and Bipolar Disorder. Patient reported that he is taking psychiatric medication but was unable to provide SW with names of medications. Patient stated that he has a history of auditory hallucinations as evidenced by his statement, I hear voices or whispers come and go. Patient denied current hallucinations. Patient stated that he has been experiencing intermittent suicidal ideation with a plan to jump in front of a car. LOUIS offered the patient homeless, substance use, and mental health resources. Patient accepted the resources and thanked SW. Patient verbalized awareness of where to go if the patient experienced suicidal ideation/was not feeling safe. Patient reported that he would follow up with resources independently. SW filed homeless waiver in the patients chart. LOUIS discussed discharge plans with the patient. Patient agreed to voluntary psychiatric admission at [facility]. PLAN: Patient requested voluntary psychiatric admission. LOUIS will fax clinicals to [facility], , for review. No further SS intervention at this time, however, SW will remain available as needed. RESOURCES: Year-round shelters: [facility] [address] [place] [address] ; [facility] [address] [place] [address]; [facility] [id number] [facility] [address] SPA 4 | [facility] Provider: First to Serve Address: [address], [address] # of Beds: 48 Population Served: [facility] Provider: First to Serve Address: [address] [facility], [address] # of Beds: 73 Population Served: [place] SPA 6 | [facility] Provider: [facility] at Last Address: [address] [facility], [address] # of Beds: 63 Population Served: [facility] 3 | [facility] Provider: [facility] [place] Address: [address] [place] [phone] # of Beds: 75 Population Served: [place] [facility] 8 | [facility] Provider: [facility] [place] Address: [address] [place] [address] # of Beds: 80 Population Served: [facility] 1 | [facility] Provider: [facility] [place] Address: [address] [place] [address], [address] # of Beds: 85 Population Served: [facility] 2 | [facility] Provider: [place] [facility] Address: Confidential (please call for location) # of Beds: 52 Population Served: [facility] 4 | [facility] Provider: [facility] Address: [address] [facility], [address] # of Beds: 49 Population Served: [facility] Provider: First To Serve Address: [address] [facility], [address] # of Beds: 27 Population Served: [place] Hygiene: [facility]: [address] [address] ; [facility] [address] [facility] ; [facility] [address] . Food Resources: [place] [facility] at [facility]- [address] [place]; Meet Each Need with Dignity ([facility]) [address] [place]; [facility] [address] [facility]; [facility] [address] [facility]. Mental Health resources provided: [facility] [address] [place], [place] [id number] ; [facility] [address] [facility] [address], [place], [place] [id number] ; [facility] [address] [facility] [address] ; [facility] [place], [place] [phone] Healthcare Clinics: [facility] [address] [facility], [address] [place]. [place] ; [facility] [address] [facility] [address] [place] [address]; [facility] [address] [facility]. [place] [phone] Counseling--Outpatient [facility] [address] [facility], [place] [address] (Specializes in in-depth psychotherapy for emotional distress: anxiety, depression, interpersonal conflicts, life transitions, childhood abuse) PSYCHIATRIC OUTPATIENT SERVICES [facility] Partial Hospitalization and Intensive Outpatient Program (Managed Care and [place] Only) [address] [facility] [phone] [facility] Partial Hospitalization and Outpatient Program [address] [place] [address] [facility] Partial Hospitalization and Outpatient Program [address] [facility] [place] [address] [facility] [address] [facility]. [address] [place], [place] [address] [facility] Partial Hospitalization and Outpatient Program [address] [address] [facility], [place] [phone] Substance use resources provided included: [facility] Substance Abuse Self-Helpline (SAS) ; [facility] [address] [facility] [place] [address] ; [facility] [address] [facility] [address] ; [facility] [address] [facility] [address] ; [facility] [address] [facility] [address] ; [facility] [address] [facility] [address] ; [facility]; [facility] [place]; [place]; Alcoholics Anonymous -SFV"
--- NOTE | 2021-02-04 11:45 | NUR ---
Production Artist note: SW faxed clinicals to [facility], for review. SW was later notified by patient's RN Aleks that the pt plans to leave. SW spoke to pt. Pt stated, "I forgot I have an appointment with my business liaison officer in an hour and will go to skilled nursing if I miss it." SW expressed concern regarding pts previously reported intermittent suicidal ideation. Pt stated that he does not intend to harm himself and would feel worse if he missed the appointment. Pt stated that he was aware of where to go if he was experiencing suicidal ideation or felt unsafe. Pt stated that he would go to an urgent care or PD. Pt stated that he would contact his mother, Leena, for support. Pt stated that he in regular contact with his mother. Pt was previously provided with resources for homelessness, substance use and outpatient mental health. Pt stated that he would follow up independently. SW notified [facility] to cancel referral for voluntary psychiatric admission. No further SS intervention at this time, however, SW will remain available as needed. RESOURCES: Year-round shelters: [place] [facility] [address] [place] [address] ; [facility] [address] [place] [address]; [facility] [address] [facility] [address] SPA 4 | [facility] Recreation [place] Provider: [facility] Address: [address], [address] # of Beds: 48 Population Served: [facility] Provider: First to Serve Address: [address] [facility], [address] # of Beds: 73 Population Served: [facility] 6 | [facility] Provider: [facility] Address: [address] [facility], [address] # of Beds: 63 Population Served: [facility] 3 | [facility] Provider: Luciana of [place] Address: [address] [place] [address], [address] # of Beds: 75 Population Served: [facility] SPA 8 | [facility] Provider: Horace MONZON Address: [address] [facility], [address] # of Beds: 80 Population Served: [facility] SPA 1 | [facility] Provider: Horace MONZON Address: [address] [place] [address], [address] # of Beds: 85 Population Served: [facility] SPA 2 | [facility] Provider: [facility] Address: Confidential (please call for location) # of Beds: 52 Population Served: [facility] SPA 4 | [facility] Provider: [facility] Address: [address] [place] [address], [address] # of Beds: 49 Population Served: [facility] Provider: First To Serve Address: [address] [place] [address] # of Beds: 27 Population Served: [facility]: [facility]: [address] [facility] ; [facility] [address] [facility] ; [facility] 5646 [facility] . Food Resources: [place] [facility] at [facility]- [address]00 [facility]; Meet Each Need with Dignity ([facility]) [address] [facility]; [facility] [address]28 [facility]; [facility] [address] [place]. Mental Health resources provided: [facility] [address] [place] [address] ; [facility] [address] [facility] [address], [place] [address] ; [facility] Mental [facility] [address] [place] [address] ; [facility] [place], [place] [address] Healthcare Clinics: [facility] [address] [facility], [address] [place]. [place] ; [facility] [address] [facility] [address] [place] [address]; [facility] [address] [facility]. [place] [phone] Counseling--Outpatient [facility] [address] [facility], [place] [address] (Specializes in in-depth psychotherapy for emotional distress: anxiety, depression, interpersonal conflicts, life transitions, childhood abuse) PSYCHIATRIC OUTPATIENT SERVICES [facility] Partial Hospitalization and Intensive Outpatient Program (Managed Care and [place] Only) [address] [facility] [phone] [facility] Partial Hospitalization and Outpatient Program [address] [facility]. [address] [place], [place] [phone] [facility] Partial Hospitalization and Outpatient Program [address] [facility] [place], [place] [id number] [facility] [place] [facility] [address] [facility]. [address] [place], [place] [address] [facility] Partial Hospitalization and Outpatient Program [address] [place], [place] [phone] Substance use resources provided included: [facility] Substance Abuse Self-Helpline (SAS) ; [facility] [address] [address] [facility]. [place] 3[address] ; [facility] [address] [facility] [phone] ; [facility] [address] [facility] [address] ; [facility] [address] [facility] [address] ; [facility] [address] [facility] [phone] ; [facility]; [facility] [place]; [facility]; Alcoholics Anonymous -[facility]
--- NOTE | 2021-02-04 13:30 | NUR ---
DISCHARGE INSTRUCTIONS GIVEN ORDERED. ENCOURAGED TO FOLLOW UP WITH PMD INSTRUCTED. ALL QUESTIONS AND CONCERNS ADDRESSED. PATIENT VERBALIZED UNDERSTANDING. MEDICATION RECONCILIATION FORM COMPLETED AND COPY GIVEN TO PATIENT. IV REMOVED WITH CATHETER INTACT, PRESSURE DRESSING APPLIED. TELEMETRY UNIT RETURNED TO STATION. PATIENT ESCORTED OUT WITH ALL PERSONAL BELONGINGS, ACCOMPANIED BY STAFF. NO DISTRESS NOTED AT TIME OF DEPARTURE.
== END 2021-02-04 13:27 | disposition home or self-care (01) | DRG 897 ==
LOC: ER 17:27 → OBSVTOIN 02-02 08:39 → TRANSITION 02-02 08:39 → TELE 02-02 11:59
PROVIDERS: ADMIT Nurse Practitioner Acute Care; ATTEND Hospitalist
DX: F10.229 Alcohol dependence with intoxication, unspecified (principal); E87.1 Hypo-osmolality and hyponatremia; E87.2 Acidosis; F32.3 Major depressive disorder, single episode, severe with psychotic features; R17 Unspecified jaundice; F10.239 Alcohol dependence with withdrawal, unspecified; E86.0 Dehydration; G40.909 Epilepsy, unspecified, not intractable, without status epilepticus; F02.80 Dementia in other diseases classified elsewhere, unspecified severity, without behavioral disturbance, psychotic disturbance, mood disturbance, and anxiety; G62.9 Polyneuropathy, unspecified; I10 Essential (primary) hypertension; M20.41 Other hammer toe(s) (acquired), right foot; M20.42 Other hammer toe(s) (acquired), left foot; R73.9 Hyperglycemia, unspecified; L97.529 Non-pressure chronic ulcer of other part of left foot with unspecified severity; L97.519 Non-pressure chronic ulcer of other part of right foot with unspecified severity
CPT/HCPCS: 36415; 80048-TC; 80053-TC; 80061-TC; 80076-TC; 81001; 83735-TC; 84100-TC; 84443-TC; 85025-TC; 87081-TC; C9803; G0378; G0480; J2060; J2405; J7030

== ENCOUNTER 2021-02-08 01:52 | Emergency (ER) | payer SELFPAY ==
[~2021-02-08] VITALS: Ht 172.7 cm; Wt 81.6 kg
--- NOTE | 2021-02-08 02:05 | NUR ---
pt bibra and lapd c/o SI with plans to jump into traffic. Pt aaox4 breathing evenly and unlabored. PT admits to drinking alcohol. Pt belonginings and clothing removed and pt placed in a gown. Sitter at bedside. Pt attached to monitor and pox. Pt given blanket and call light within reach. will continue to monitor.
[2021-02-08 02:22] LABS: BASOPHILS # (AUTO) 0.1 K/uL (0.0-0.2); BASOPHILS % (AUTO) 0.5 % (0.0-2.0); EOSINOPHILS % (AUTO) 1.8 % (0.0-6.0); HEMATOCRIT 32 % (39-51); HEMOGLOBIN 11.5 g/dL (13.5-17.5); LYMPHOCYTES # (AUTO) 2.2 K/uL (0.8-4.8); LYMPHOCYTES % (AUTO) 19.8 % (20.0-44.0); MEAN CORPUSCULAR HGB CONC 35 g/dl (31.0-36.0); MEAN CORPUSCULAR VOLUME 91 fL (80-96); MONOCYTES # (AUTO) 1.7 K/uL (0.1-1.30); NEUTROPHILS % (AUTO) 62.9 % (43.0-81.0); PLATELET COUNT (AUTO) 231 K/uL (150-450); RED BLOOD CELL COUNT(AUTO) 3.56 MIL/uL (4.5-6.0); WHITE BLOOD COUNT (AUTO) 11.2 K/uL (4.3-11.0)
[2021-02-08 02:39] LABS: CALCIUM, SERUM 7.4 mg/dL (8.5-10.1); CREATININE 0.7 mg/dL (0.6-1.3); POTASSIUM 3.3 mmol/L (3.5-5.1)
--- NOTE | 2021-02-08 02:40 | NUR ---
URINE COLLECTED, SENT TO LAB.
[2021-02-08 02:44] LABS: BILIRUBIN,URINE Negative (NEGATIVE); COLOR,URINE LIGHT YELLOW (YELLOW); LEUKOCYTE ESTERASE ,URINE Negative (NEGATIVE); NITRITE, URINE Negative (NEGATIVE); PH,URINE 6.5 (5.0-8.0); PROTEIN,URINE Negative (NEGATIVE); UGLUCOSE Negative (NEGATIVE); UROBILINOGEN,URINE 0.2 EU/dL (0.2)
[2021-02-08 02:46] LABS: ALBUMIN 3.1 g/dL (3.4-5.0); BILIRUBIN,DIRECT 0.2 mg/dL (0.0-0.2); BILIRUBIN,TOTAL 0.3 mg/dL (0.2-1.0); TOTAL PROTEIN, SERUM 7.1 g/dL (6.4-8.2)
--- NOTE | 2021-02-08 04:30 | NUR ---
Patient is resting comfortably in bed with eyes closed. Easily aroused. VSS
--- NOTE | 2021-02-08 06:02 | NUR ---
Pt sleeping, easily arousable. VSS
--- NOTE | 2021-02-08 07:54 | NUR ---
THE PATIENT IS ALERT AND ORIENTED X3. DENIES PAIN. IN ROOM AIR AND DENIES SOB. RESPIRATION REGULAR AND UNLABORED. WILL CONTINUE TO MONITOR THE PATIENT.
--- NOTE | 2021-02-08 08:40 | NUR ---
THE PATIENT IS ALERT AND ORIENTED X X4. DENIES SI/HI. IN ROOM AIR AND DENIES SOB. RESPIRATION REGULAR AND UNLABORED. DENIES SOB. DENIES PAIN.
--- NOTE | 2021-02-08 08:41 | NUR ---
Patient discharged in stable condition. Written and verbal after care instructions given. Patient verbalizes understanding of instruction.
[2021-02-08 08:43] VITALS: BP 129/89
== END 2021-02-08 08:44 | disposition home or self-care (01) ==
LOC: ER 02:08
DX: R45.851 Suicidal ideations (principal); F10.129 Alcohol abuse with intoxication, unspecified; Y90.8 Blood alcohol level of 240 mg/100 ml or more; E11.9 Type 2 diabetes mellitus without complications; G40.909 Epilepsy, unspecified, not intractable, without status epilepticus; Z79.899 Other long term (current) drug therapy; Z20.822 Contact with and (suspected) exposure to COVID-19
CPT/HCPCS: 36415; 80048; 80076; 80143; 80307; 80320 ×2; 81003; 85025; 87426; 99285; C9803; G0480

== ENCOUNTER 2021-02-09 16:05 | Emergency (ER) | payer SELFPAY ==
[~2021-02-09] VITALS: Ht 167.6 cm; Wt 81.6 kg
[2021-02-09 16:08] VITALS: BP 132/86
--- NOTE | 2021-02-09 16:10 | NUR ---
PT STATED HE IS NOT SUICIDAL I WANTS TO LEAVE. AWARE
--- NOTE | 2021-02-09 16:14 | NUR ---
PT ABLE TO AMBULATE WITHOUT ASSISTANCE AND INSISTING THAT HE WANTS TO LEAVE NOW. AWARE.
--- NOTE | 2021-02-09 16:20 | NUR ---
Patient discharged to home in stable condition. Written and verbal after care instructions given. Patient verbalizes understanding of instruction.
== END 2021-02-09 16:21 | disposition home or self-care (01) ==
LOC: ER 16:09
DX: F32.9 Major depressive disorder, single episode, unspecified (principal); Z59.0 Homelessness; Z79.899 Other long term (current) drug therapy

== ENCOUNTER 2021-05-31 15:36 | Emergency (ER) | payer SELFPAY ==
[~2021-05-31] VITALS: Ht 172.7 cm; Wt 82.6 kg
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
--- NOTE | 2021-05-31 16:20 | NUR ---
FRANCISCO BOSTON AT FOR SHAYNA.
[2021-05-31 16:56] LABS: BASOPHILS % (AUTO) 0.6 % (0.0-2.0); HEMATOCRIT 41 % (39-51); HEMOGLOBIN 14.2 g/dL (13.5-17.5); LYMPHOCYTES # (AUTO) 1.7 K/uL (0.8-4.8); LYMPHOCYTES % (AUTO) 21.9 % (20.0-44.0); MEAN CORPUSCULAR HGB CONC 35 g/dl (31.0-36.0); MEAN CORPUSCULAR VOLUME 90 fL (80-96); MONOCYTES # (AUTO) 0.8 K/uL (0.1-1.30); MONOCYTES % (AUTO) 10.7 % (2.0-12.0); NEUTROPHILS # (AUTO) 5.2 K/uL (1.8-8.9); NEUTROPHILS % (AUTO) 66.8 % (43.0-81.0); PLATELET COUNT (AUTO) 220 K/uL (150-450); RED BLOOD CELL COUNT(AUTO) 4.54 MIL/uL (4.5-6.0); WHITE BLOOD COUNT (AUTO) 7.8 K/uL (4.3-11.0)
[2021-05-31] MEDS ORDERED: ONDANSETRON 4 MG TAB.RAPDIS ONE (17:21)
--- NOTE | 2021-05-31 17:23 | NUR ---
MEDICATED PER VARNISHER PLASTICOATER'S ORDER, PT ANTONIO WELL.
[2021-05-31] MEDS ORDERED: ONDANSETRON 4 MG TAB.RAPDIS SL ONE (17:30)
[2021-05-31 18:06] LABS: CREATININE 0.9 mg/dL (0.6-1.3); POTASSIUM 3.6 mmol/L (3.5-5.1)
[2021-05-31] MEDS ORDERED: ONDA4TAB5 PO (18:44)
[2021-05-31 18:47] VITALS: BP 146/98
== END 2021-05-31 18:48 | disposition home or self-care (01) ==
LOC: ER 16:40
DX: R10.84 Generalized abdominal pain (principal); F32.9 Major depressive disorder, single episode, unspecified; F10.10 Alcohol abuse, uncomplicated; Z79.899 Other long term (current) drug therapy; Y08.89XA Assault by other specified means, initial encounter; Y93.89 Activity, other specified; Y92.89 Other specified places as the place of occurrence of the external cause; Y99.8 Other external cause status; Y90.9 Presence of alcohol in blood, level not specified
CPT/HCPCS: 36415; 80048; 83690; 85025; 99283; Q0162

== ENCOUNTER → 2022-05-16 | Emergency (ER) | payer MEDICAID ==
[~2022-05-16] VITALS: Ht 172.7 cm; Wt 83.0 kg
[~2022-05-16] MED LIST changes: +ONDA4TAB5 PO
[2022-05-16 16:27] VITALS: BP 126/79
--- NOTE | 2022-05-16 18:02 | NUR ---
MULTIPLE calls NO response- Eloped
== END | disposition home or self-care (01) ==
LOC: ER 16:21
DX: Z53.21 Procedure and treatment not carried out due to patient leaving prior to being seen by health care provider (principal)